=== PATIENT | female | born 1980 | race Caucasian/White ===

== ENCOUNTER → 2016-07-17 | Outpatient (CLI) | payer OTHER ==
--- NOTE | 2016-07-17 16:20 | CT ---
EXAMINATION TYPE: CT soft tissue neck wo con DATE OF EXAM: 07/17/2016 3:26 PM COMPARISON: Prior exam unavailable HISTORY: tracheal stenosis CT DLP: 295 mGycm Automated exposure control for dose reduction was used. Helical acquisition from the skull base through the upper chest without contrast FINDINGS: Extensive postop changes are noted to be facial bones. 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 Tracheal stenosis is present at the level of the manubrium, maximum diameter is approximately 13-14 m m x 10 mm. Some associated calcifications are present along the anterior wall. Postop changes are als o noted to be thoracic spine. There is likely a scoliosis. Lung apices within normal limits. There is no evident adenopathy. Lack of contrast may compromise sensitivity. IMPRESSION: NONCONTRAST EXAM. POSTOP CHANGES ARE EXTENSIVE. TRACHEAL STENOSIS DESCRIBED.
== END | disposition home or self-care (01) ==
LOC: RADCTMAIN 14:08
PROVIDERS: ATTEND Otolaryngology
DX: Z48.813 Encounter for surgical aftercare following surgery on the respiratory system (principal); J39.8 Other specified diseases of upper respiratory tract
CPT/HCPCS: 70490